=== PATIENT | male | born 1965 | race Caucasian/White ===

== ENCOUNTER 2020-12-19 14:31 | Emergency (ER) | payer OTHER ==
[~2020-12-19] VITALS: Ht 180.3 cm; Wt 111.3 kg
[2020-12-19] MEDS ORDERED: LIDOCAINE 1%/EPI 1:100,000 20 ML VIAL. ONE (14:50)
[2020-12-19] MEDS ORDERED: DIPH,PERTUSS(ACELL),TET VAC/PF 0.5 ML SYRINGE. VAX IM ONE (15:00)
[2020-12-19 16:30] VITALS: BP 140/79
--- NOTE | 2020-12-19 16:31 | PHYS DOC ---
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 Historian was the patient Review of Systems Constitutional: Denies fever or chills [] Musculoskeletal: Denies back pain or joint pain [] Integument: Reports left jamison laceration Neurologic: Denies headache, focal weakness or sensory changes [] All other systems were reviewed and found to be within normal limits, except as documented in this note. Current Medications Current Medications Medications (Trade) Dose Ordered Sig/Bertha Start Time Stop Time Status Last Admin Dose Admin Diphtheria/ Pertussis/Tetanus Vacc (ADACEL TDap SYRINGE) 0.5 ml ONCE ONCE 12/19/20 15:00 12/19/20 15:05 DC 12/19/20 15:24 0.5 ML Lidocaine/ Epinephrine (Xylocaine 1%-Epi 1:100,000) 20 ml STK-MED ONCE 12/19/20 14:50 12/19/20 14:50 DC Allergies Allergies Coded Allergies Type Severity Reaction Last Updated Verified No Known Drug Allergies 12/19/20 No Physical Exam Constitutional: Well developed, well nourished, no acute distress, n Skin: Left jamison with a laceration approximately 8 cm long, there is no tendon involvement. Full range of motion to the left lower extremity including foot knee and ankle. +2 left pedal pulse. Cap refill less than 2 seconds to left toes Back: No tenderness, no CVA tenderness. Extremeties: Intact distal pulses, no tenderness, no cyanosis, no clubbing, ROM intact, no edema. Musculoskeletal: Good ROM in all major joints, no tenderness to palpation or major deformities noted. Neurologic: Alert and oriented X 3, normal motor function, normal sensory function, no focal deficits noted. Psychologic: Affect normal, judgement normal, mood normal. Radiology/Procedures Laceration/Wound Repair Laceration/Wound Repair : [] Wound Location: Left jamison Wound's Depth, Shape: Vertical Wound Length (cm): Approximately 8 cm Wound Explored: clean Irrigated w/ Saline (ccs): 1000 Betadine Prep?: Yes Anesthesia: 20 mm of lidocaine with epinephrine Wound Repaired With: 14 vazquez Progress wound was covered with nonstick dressing Current Patient Data Vital Signs Date Time Temp Pulse Resp B/P (MAP) Pulse Ox O2 Delivery O2 Flow Rate FiO2 12/19/20 14:45 98.3 86 16 141/83 (102) 96 Room Air Vital Signs Date Time Temp Pulse Resp B/P (MAP) Pulse Ox O2 Delivery O2 Flow Rate FiO2 12/19/20 14:45 98.3 86 16 141/83 (102) 96 Room Air Vital Signs Date Time Temp Pulse Resp B/P (MAP) Pulse Ox O2 Delivery O2 Flow Rate FiO2 12/19/20 14:45 98.3 86 16 141/83 (102) 96 Room Air Course & Med Decision Making Pertinent Labs and Imaging studies reviewed. (See chart for details) This is a 55-year-old male patient presenting to the ED today with left jamison laceration that was closed by me as noted in procedures. Wound care instructions and return precautions provided. Tetanus updated Departure Departure: Impression: Primary Impression: Laceration of left lower leg Disposition: 01 HOME / SELF CARE / HOMELESS Condition: STABLE Referrals: PCP,NO (PCP) please follow up with the Ed or your doctor in 7-10 days for staple removal Patient Instructions: Laceration Care, Adult, [id number] Additional Instructions: You have a laceration on the left jamison that was closed with vazquez. Please remove the dressing in 24 hours. Please wash the area once a day with regular soap and water. Keep the area open to air if not bleeding or draining. Monitor the area for any signs of infection including but not limited to increased redness, warmth, yellow drainage from the area and return to the ED see your doctor for your cough. Please follow-up with your own doctor or the emergency room in 7 to 10 days for staple removal Problem Qualifiers Primary Impression: Laceration of left lower leg Encounter type: initial encounter Qualified Codes: S81.812A - Laceration without foreign body, left lower leg, initial encounter ALEISHA [employer]UI [employer] REPRESENTATIVE December 19, 2020 16:31
== END 2020-12-19 16:35 | disposition home or self-care (01) ==
LOC: ER 14:31
DX: S81.812A Laceration without foreign body, left lower leg, initial encounter (principal); I10 Essential (primary) hypertension; E78.5 Hyperlipidemia, unspecified; W26.8XXA Contact with other sharp object(s), not elsewhere classified, initial encounter; Y93.89 Activity, other specified; Y92.89 Other specified places as the place of occurrence of the external cause; Y99.8 Other external cause status
CPT/HCPCS: 12004; 90471; 90715; 99283-25